=== PATIENT | female | born 1995 | race Caucasian/White ===

== ENCOUNTER 2017-03-23 12:38 | Emergency (ER) | payer BC, MEDICAID ==
[~2017-03-23] VITALS: Ht 160 cm; Wt 47.2 kg
--- NOTE | 2017-03-23 13:19 | NUR ---
Patient discharged to home in stable conditon. Written and verbal after care instructions given. Patient verbalizes understanding of instructions.pt walks in steady gait with mother, no sign of distress
== END 2017-03-23 13:10 | disposition home or self-care (01) ==
LOC: ER 12:38
DX: J02.9 Acute pharyngitis, unspecified (principal)
CPT/HCPCS: A4663

== ENCOUNTER 2017-04-02 18:04 | Emergency (ER) | payer BC, MEDICAID ==
[~2017-04-02] VITALS: Ht 157.5 cm; Wt 45.4 kg
--- NOTE | 2017-04-02 19:33 | NUR ---
Patient discharged to home in stable conditon. Written and verbal after care instructions given. Patient verbalizes understanding of instructions.
== END 2017-04-02 19:34 | disposition home or self-care (01) ==
LOC: ER 18:04
DX: H61.23 Impacted cerumen, bilateral (principal); H65.01 Acute serous otitis media, right ear
CPT/HCPCS: A4663

== ENCOUNTER 2018-10-06 10:17 | Emergency (ER) | payer MEDICAID ==
[~2018-10-06] VITALS: Ht 157.5 cm; Wt 46.3 kg
[2018-10-06] MEDS: AZITHROMYCIN 250 MG TABLET PO ONE (10:44)
[2018-10-06] MEDS ORDERED: AZITHROMYCIN 250 MG TABLET ONE (10:46)
--- NOTE | 2018-10-06 10:46 | NUR ---
Patient discharged to home in stable conditon with brisk steady gait. Written and verbal after care instructions given to patient and family. Patient & mother verbalized understanding & compliance of instructions.
== END 2018-10-06 10:48 | disposition home or self-care (01) ==
LOC: ER 10:17
DX: J02.9 Acute pharyngitis, unspecified (principal)
CPT/HCPCS: A4663; Q0144